=== PATIENT | female | born 1975 | race Caucasian/White ===

== ENCOUNTER 2022-08-31 12:35 | Emergency (ER) | payer OTHER ==
[~2022-08-31] VITALS: Ht 165.1 cm; Wt 100.7 kg
[~2022-08-31 12:35] MED LIST: ADVAIR 100-501 EACH INH; ALLEGRA60 MG PO; CALCIUM500 MG PO; CITRUCEL479 GM PO; CLONAZEPAM0.5 MG PO; CYMBALTA20 MG PO; DAILY VITAMIN1 EAC2 PO; EFFEXOR XR150 MG PO; IBUPROFEN IB200 MG PO; PERCOCET 7.5-31 EACH PO; PRILOSEC20 MG PO; SINGULAIR10 MG PO; VITAMIN D-32000 UNI1 PO; ZYRTEC10 MG PO
--- OUTSIDE RECORDS SUMMARY | 2022-08-31 12:42 | XMS ---
PreManage Notification: ARTHUR SABILLON Security Bander Hand Events No recent Security Events currently on file CRITERIA MET - [facility] - 2 Visits in 30 Days CARE PROVIDERS DAVID SPARKS Physician Chain [employer] Current PHONE: Unknown Luis Miguel has no Care Guidelines for this patient. [facility] VISIT COUNT (12 MO.) 2 [facility] TOTAL 2 NOTE: Visits indicate total known visits. ED/UCC VISIT TRACKING (12 MO.) 08/31/2022 12:35 [facility] [place] TYPE: Emergency COMPLAINT: - FLANK PAIN 08/29/2022 16:42 [facility] [place] TYPE: Emergency COMPLAINT: - BLOOD IN URINE PAIN RIGHT SIDE, LOWER ABDOM PAIN INPATIENT VISIT TRACKING (12 MO.) No inpatient visits to display in this time frame [email or web address]
[2022-08-31] MEDS ORDERED: PREDNISONE20 MG PO ×2 (14:24→16:20)
[2022-08-31] MEDS ORDERED: CYCLOBENZAPRINE10 MG PO ×2 (14:25→16:20)
[2022-08-31 14:46] VITALS: BP 124/98
== END 2022-08-31 14:47 | disposition home or self-care (01) ==
LOC: ED 12:35
DX: R10.9 Unspecified abdominal pain (principal); J45.909 Unspecified asthma, uncomplicated; Z88.1 Allergy status to other antibiotic agents; Z88.8 Allergy status to other drugs, medicaments and biological substances; Z79.899 Other long term (current) drug therapy
CPT/HCPCS: 36415; 74176; 80053; 81003; 84703; 85025; J1885; J2405; J7121